=== PATIENT | male | born 1985 | race Caucasian/White ===

== ENCOUNTER 2020-05-08 21:55 | Emergency (ER) | payer SELFPAY ==
[~2020-05-08] VITALS: Ht 177.8 cm; Wt 72.0 kg
--- NOTE | 2020-05-08 22:15 | NUR ---
PT TO ED WITH C/O OF [facility] THIS MORNING AT APPX 930AM, PT REPORTS LOC AND DOESNT REMEMBER EVENTS AGAIN UNTIL APPX 1200. PT REPORTS BEING UP AND AROUND APARTMENT TODAY. FRIEND REPORTS FINDING PT AT HOME AT 9PM, WITH ALTERED MENTATION. PT AOX4 ON ARRIVAL. REPROTS "FEELING WEIRD" UNABLE TO EXPLAIN FURTHER. PT CONNECTED TO MONITORING, UPDATED ON POC. CALL LIGHT WITHIN REACH. FRIEND AT BS FOR SUPPORT.
[2020-05-08 23:06] LABS: MEAN CORPUSCULAR HEMOGLOBIN 35.6 pg (27.5-34.5); MEAN CORPUSCULAR HGB CONC 34.9 g/dL (33.2-36.2); MEAN CORPUSCULAR VOLUME 102.2 fL (81-97); MEAN PLATELET VOLUME 7.7 fL (7.4-10.4); PLATELET COUNT 366 x10^3/uL (130-400); RED BLOOD COUNT 4.05 x10^6/uL (4.38-5.82); RED CELL DISTRIBUTION WIDTH 15.5 % (9.4-14.8)
[2020-05-08 23:10] LABS: ALBUMIN 4.1 g/dL (3.4-5.0); ANION GAP 10 mmol/L (5-15); CALCIUM 8.5 mg/dL (8.5-10.1); CHLORIDE 108 mmol/L (98-107)
[2020-05-08 23:14] LABS: ALANINE AMINOTRANSFERASE 256 U/L (12-78); ALKALINE PHOSPHATASE 19 U/L (45-117); BILIRUBIN,TOTAL 0.4 mg/dL (0.2-1.0); CREATINE KINASE, TOTAL 160 U/L (39-308); CREATININE 0.86 mg/dL (0.7-1.3); TOTAL PROTEIN 7.7 g/dL (6.4-8.2)
[2020-05-08 23:21] LABS: BASOPHILS # (AUTO) 0.04 x10^3/uL (0-0.1); BASOPHILS % (AUTO) 1 % (0-1); EOSINOPHILS # (AUTO) 0.02 x10^3/uL (0-0.4); EOSINOPHILS % (AUTO) 1 % (1-7); LYMPHOCYTES # (AUTO) 1.08 x10^3/uL (1-3.4); LYMPHOCYTES % (AUTO) 32 % (22-44); MD SCAN; MONOCYTES # (AUTO) 0.36 x10^3/uL (0.2-0.8); MONOCYTES % (AUTO) 11 % (2-9); NEUTROPHILS # (AUTO) 1.87 x10^3/uL (1.8-6.8); NEUTROPHILS % (AUTO) 56 % (42-75)
--- NOTE | 2020-05-08 23:36 | NUR ---
PT RESTING ON [place]IRAH WITH FAMILY AT FOR SUPPORT. PT UPDATED ON POC. MONITORING IN PLACE, CALL LIGHT WITHIN REACH, ALL SAFETY MEASURES IN PLACE.
[2020-05-08] MEDS ORDERED: POTASSIUM CHLORIDE 20 MEQ TAB.ER.PRT ONE (23:56)
[2020-05-09] MEDS ORDERED: POTASSIUM CHLORIDE 20 MEQ TAB.ER.PRT PO ONE
--- NOTE | 2020-05-09 | NUR ---
PT MEDICATED PER JAN 02 RIGHTS VERIFIED JAS
--- NOTE | 2020-05-09 00:08 | NUR ---
PT AMB WITH STEADY GAIT NO ASSIST REQ
[2020-05-09 00:19] VITALS: BP 120/80
--- NOTE | 2020-05-09 00:21 | NUR ---
Patient/Caregiver given discharge instructions and they have confirmed that they understand the instructions. Patient ambulatory with steady gait.
== END 2020-05-09 00:21 | disposition home or self-care (01) ==
LOC: ED 23:12
DX: S09.90XA Unspecified injury of head, initial encounter (principal); R41.82 Altered mental status, unspecified; F10.220 Alcohol dependence with intoxication, uncomplicated; R94.5 Abnormal results of liver function studies; I10 Essential (primary) hypertension; F17.210 Nicotine dependence, cigarettes, uncomplicated; W01.0XXA Fall on same level from slipping, tripping and stumbling without subsequent striking against object, initial encounter; Y93.89 Activity, other specified; Y92.009 Unspecified place in unspecified non-institutional (private) residence as the place of occurrence of the external cause; Y99.8 Other external cause status; Y90.9 Presence of alcohol in blood, level not specified
CPT/HCPCS: 36415; 70450; 70486; 80053; 80307; 82550; 85025; 99285